=== PATIENT | female | born 1985 ===

== ENCOUNTER 2018-11-12 10:44 | Outpatient (CLI) | payer OTHER | END 2018-11-12 11:52 | disposition home or self-care (01) | LOC: NST 10:44 | DX: Z34.82 Encounter for supervision of other normal pregnancy, second trimester (principal) ==

== ENCOUNTER 2018-11-19 10:26 | Outpatient (CLI) | payer OTHER | END 2018-11-19 11:35 | disposition home or self-care (01) | LOC: NST 10:26 | DX: Z34.82 Encounter for supervision of other normal pregnancy, second trimester (principal) ==

== ENCOUNTER 2018-12-03 09:40 | Outpatient (CLI) | payer OTHER | END 2018-12-03 10:47 | disposition home or self-care (01) | LOC: NST 09:40 | DX: Z34.83 Encounter for supervision of other normal pregnancy, third trimester (principal) ==

== ENCOUNTER 2018-12-17 09:43 | Outpatient (CLI) | payer OTHER | END 2018-12-17 10:54 | disposition home or self-care (01) | LOC: NST 09:43 | DX: Z34.83 Encounter for supervision of other normal pregnancy, third trimester (principal) ==

== ENCOUNTER 2018-12-23 10:35 | Outpatient (CLI) | payer OTHER | END 2018-12-23 11:36 | disposition home or self-care (01) | LOC: NST 10:35 | DX: Z34.83 Encounter for supervision of other normal pregnancy, third trimester (principal) ==

== ENCOUNTER 2018-12-31 10:07 | Outpatient (CLI) | payer OTHER | END 2018-12-31 11:18 | disposition home or self-care (01) | LOC: NST 10:07 | DX: Z34.83 Encounter for supervision of other normal pregnancy, third trimester (principal) ==

== ENCOUNTER 2019-01-13 07:57 | Inpatient (IN) | payer OTHER ==
[~2019-01-13] VITALS: Ht 160 cm; Wt 157.0 kg
[2019-01-13] MEDS ORDERED: PRENATAL 19 TA1 EAC1 PO (08:39)
[2019-01-13] MEDS ORDERED: NIFE60TA3 PO (08:41)
== END 2019-01-16 08:28 | disposition home or self-care (01) | DRG 833 ==
LOC: LDR 07:57 → OB/GYN 07:57
PROVIDERS: ADMIT Obstetrics & Gynecology
PROC: BY4FZZZ Ultrasonography of Third Trimester, Single Fetus (ICD-10-PCS; principal; 2019-01-13)
PROC: 4A1HXCZ Monitoring of Products of Conception, Cardiac Rate, External Approach (ICD-10-PCS; 2019-01-13)
DX: O60.03 Preterm labor without delivery, third trimester (principal); O47.03 False labor before 37 completed weeks of gestation, third trimester; Z34.03 Encounter for supervision of normal first pregnancy, third trimester

== ENCOUNTER 2019-01-19 10:04 | Outpatient (CLI) | payer OTHER ==
[~2019-01-19 10:04] MED LIST: NIFE60TA3 PO; PRENATAL 19 TA1 EAC1 PO
== END 2019-01-19 10:50 | disposition home or self-care (01) ==
LOC: NST 10:04
DX: Z34.83 Encounter for supervision of other normal pregnancy, third trimester (principal)

== ENCOUNTER 2019-01-24 08:02 | Inpatient (IN) | payer OTHER ==
[~2019-01-24] VITALS: Ht 160 cm; Wt 69.9 kg
== END 2019-01-31 11:37 | disposition home or self-care (01) | DRG 833 ==
LOC: LDR 08:02 → OB/GYN 08:02
PROVIDERS: ADMIT Obstetrics & Gynecology
PROC: BY4FZZZ Ultrasonography of Third Trimester, Single Fetus (ICD-10-PCS; principal; 2019-01-24)
PROC: 4A1HXCZ Monitoring of Products of Conception, Cardiac Rate, External Approach (ICD-10-PCS; 2019-01-24)
DX: O47.03 False labor before 37 completed weeks of gestation, third trimester (principal); Z34.03 Encounter for supervision of normal first pregnancy, third trimester

== ENCOUNTER 2019-02-02 06:12 | Inpatient (IN) | payer OTHER ==
[~2019-02-02] VITALS: Ht 162.6 cm; Wt 69.9 kg
== END 2019-02-04 12:03 | disposition home or self-care (01) | DRG 807 ==
LOC: LDR 06:12 → SURG-SUITE 06:12 → LDR 06:59 → SURG-SUITE 19:51
PROVIDERS: ADMIT Obstetrics & Gynecology
PROC: 10D07Z6 Extraction of Products of Conception, Vacuum, Via Natural or Artificial Opening (ICD-10-PCS; principal; 2019-02-02)
PROC: 0UQGXZZ Repair Vagina, External Approach (ICD-10-PCS; 2019-02-02)
PROC: 0W8NXZZ Division of Female Perineum, External Approach (ICD-10-PCS; 2019-02-02)
PROC: 3E033VJ Introduction of Other Hormone into Peripheral Vein, Percutaneous Approach (ICD-10-PCS; 2019-02-02)
PROC: 10907ZC Drainage of Amniotic Fluid, Therapeutic from Products of Conception, Via Natural or Artificial Opening (ICD-10-PCS; 2019-02-02)
PROC: 4A1HXCZ Monitoring of Products of Conception, Cardiac Rate, External Approach (ICD-10-PCS; 2019-02-02)
DX: O71.4 Obstetric high vaginal laceration alone (principal); Z37.2 Twins, both liveborn; Z3A.36 36 weeks gestation of pregnancy